=== PATIENT | female | born 1960 | race Caucasian/White ===

== ENCOUNTER 2024-01-19 16:30 | Observation (INO) | payer MEDICARE, OTHER, SELFPAY ==
[2024-01-19] VITALS (15 sets, daily range): BP systolic 107–133; BP diastolic 61–83; BMI 20.8; BMI 20.2
--- NOTE | 2024-01-19 10:26 | ED.GENMED ---
History of Present Illness
General
Chief Complaint: Fainting/Passed Out
Source: patient and ambulance crew
Exam Limitations: none
Time Seen by Provider: 01/19/24 10:01
Nursing documentation reviewed up to this point in time: agreed with
Travel History
Have you had any contact with someone who has COVID-19?: No
Do you have any symptoms of coronavirus? Fever > 100 degrees, chills, cough, shortness of breath, sore throat, loss of taste or smell, muscle aches, or headache?: No
History of Present Illness
History of Present Illness:
64-year-old female presents emergency department due to lightheadedness and weakness since yesterday. She had a near syncope episode this morning. She lowered self to the ground. She reports episodes of shaking and having able to move. She
reports nausea and episode of diarrhea on arrival. Her dog had Giardia recently.
Past History
Past History
ED Past Medical History: Hypothyroidism
ED Past Surgical History: Orthopedic
Social History
Tobacco: Non-smoker
Alcohol: Occasional
Drug: None
Living: alone
Review of Systems
Review of Systems
Allergies reviewed?: Yes
All Other Systems: Not applicable
Constitutional: Reports no symptoms
EENT: Reports no symptoms
Respiratory: Reports no symptoms
Cardiac: Reports syncope (Near)
ABD/GI: Reports nausea and diarrhea
: Reports no symptoms
Musculoskeletal: Reports no symptoms
Skin: Reports no symptoms
Neurological: Reports dizzy
Endocrine: Reports no symptoms
Hematologic/Lymphatic: Reports no symptoms
Psychiatric: Reports no symptoms
Phy Exam
Physical Exam
Physical Exam:
Physical Exam
General: no apparent distress, not acutely ill
Neck: supple. no meningeal signs. normal posterior pharynx
Heart: s1/s2 regular rate and rhythm, no murmur. equal radial
pulses.
HEENT: Pupils equal round reactive to light, EOMI
Lungs: no acute respiratory distress. clear bilaterally
Abdomen: normal bowel sounds. not tender. no CVAT
Neuro: alert and oriented. no focal neurological deficits cranial nerves II through XII intact
Skin: no rash
Psychiatric: well kept. interactive and cooperative
Extremities: no edema. no calf tenderness. negative homans. good distal pulses
Course
Orders/Labs/Results
Orders:
Orders
01/19/24 10:23
IV Insert/Care/Rem.- Treatment PRN
Pulse Ox/cont/shift [RESP] Stat
Quantity: 1
01/19/24 10:24
Electrocardiogram (*1) Stat
Reason for Study: Other
Other Reason for Exam: chest pain
Cardiac Monitoring- Treatment ONCE
EKG- Treatment ONCE
01/19/24 10:30
Complete Blood Count/With Diff Urgent
Comprehensive Metabolic Panel Urgent
Magnesium Urgent
TSH Urgent
Troponin I Urgent
01/19/24 10:49
CT Head W/o Iv Contrast Urgent
Comment:
Reason For Exam: dizziness, weakness
01/19/24 12:52
Aspirin 325 mg PO NOW STA
01/19/24 15:36
Admit/Transfer Patient As Directed
Co-Sign Provider:
Level of Care: Observation services
Assign to:: Telemetry
Physician / Group: Hospitalist
Diagnosis: Pre Syncope
Reason for Telemetry: CVA/TIA
Date to Stop Telemetry: 01/22/24
Time to Stop Telemetry: 11:00
01/19/24 15:37
Code Status As Directed
Resuscitation Status: Full Code
01/22/24 11:00
DC Protocol for Telemetry ONCE
Abnormal Lab Results
01/19/24
10:30
MCH 31.6 H pg
(27.0-31.0)
Absolute Lymphs (auto) 1.1 L 10^3/uL
(1.2-3.4)
Glucose 109 H mg/dl
(70-99)
01/19/24 10:30
01/19/24 10:30
Vital Signs
Initial and Last Documented VS:
Initial Vital Signs
BP
129/78
01/19/24 10:00
Last Documented Vital Signs
Temp Pulse Resp BP Pulse Ox
98.2 F 69 11 125/69 98
01/19/24 10:02 01/19/24 15:30 01/19/24 15:30 01/19/24 15:00 01/19/24 15:15
MDM/Problems Addressed
Differential Diagnosis Includes:
CVA, TIA, syncope
MDM/Problems Addressed:
64-year-old female with weakness, possible TIA.
Chronic conditions affecting care: Other (Hypothyroidism)
*Radiology
Radiology exam reviewed: radiology read reviewed (CT head no acute findings)
*Pulse Oximetry
Patient hypoxic: no
*EKG
Interpreted by ED Provider?: Yes
EKG Intrepretation Date: 01/19/24
EKG Intrepretation Time: 10:46
Interpretation: normal
Comparison EKG: no changes
Heart Rate: 68
Rate: normal
Rhythm: sinus
[place]: normal axis
Interval: normal interval
QRS Pattern: normal QRS
Ischemia: no ischemia
*Head Insulation Board Saw Operator Interpretation
Rate: normal
Interpretation: normal
Heart Rate: 66
Rhythm: sinus
*Critical Care Note
Total Time (30-74mins, 75-104mins- exclusive of procedures): Not Applicable
ED Attending Note
-
Portions of this chart may have been created with voice recognition software.� Occasional wrong word or��sound alike� substitutions may have occurred due to the inherent limitations of voice recognition software.
Discharge Plan
Departure
Patient Disposition: Admit
Date of Disposition: 01/19/24
Time of Disposition: 12:51
Admit to: Telemetry
Presentation/result/management discussed w/ accepting MD/DO: Hospitalist
Patient with high blood pressure during this ER visit?: Yes
Condition: Good
Discharge Problem:
Ataxia
Interventions
Interventions:
*Risk Screen - Suicide Last Done: 01/19/24 10:03
*General Assessment Last Done: 01/19/24 10:03
*Neglect/Abuse Screening Last Done: 01/19/24 10:03
*ED COVID-19 Vaccine History Last Done: 01/19/24 10:02
ED- Cardiac Assessment Last Done: 01/19/24 10:03
ED- Neurological Assessment Last Done: 01/19/24 16:33
[2024-01-19 10:50] LABS: % Basophils 0.6 % (0-2); % Eosinophils 0.8 % (0-6); % Immature Granulocytes 0.2 % (0-0.5); % Lymphocytes 20.5 % (20.5-51.1); % Monocytes 5.9 % (1.7-9.3); Absolute Lymphocytes 1.1 10^3/uL (1.2-3.4); Absolute Monocytes 0.3 10^3/uL (0.1-0.6); Absolute Neutrophils 3.7 10^3/uL (1.4-6.5); Hematocrit 38.8 % (37.0-47.0); Hemoglobin 13.5 g/dL (12.0-16.0); Mean Corp Hgb Conc. 34.8 g/dL (33.0-37.0); Mean Corpuscular Hgb 31.6 pg (27.0-31.0); Mean Corpuscular Volume 90.9 fL (81.0-99.0); Mean Platelet Volume 8.9 fL (7.4-10.4); Nucleated Red Blood Cells % 0 %; Platelet Count 271 10^3/uL (130-400); Red Blood Cell Count 4.27 10^6/uL (4.20-5.40); Red Cell Dist. Width 11.8 % (11.5-14.5); White Blood Cell Count 5.1 10^3/uL (4.8-10.8)
[2024-01-19 11:06] LABS: ALT (SGPT) 30 U/L (0-35); AST (SGOT) 31 U/L (14-36); Albumin 4.6 g/dl (3.5-5.0); Alkaline Phosphatase 113 U/L (38-126); Blood Urea Nitrogen 15 mg/dl (7-17); Calcium 10.1 mg/dl (8.4-10.2); Carbon Dioxide 27 mmol/L (22-30); Chloride 100 mmol/L (98-107); Estimated Creatinine Clearance 91 ml/min; Glucose 109 mg/dl (70-99); Potassium 4.1 mmol/L (3.5-5.1); Sodium 136 mmol/L (135-145); Total Bilirubin 1.1 mg/dl (0.2-1.3); Total Protein 7.2 g/dl (6.3-8.2); eGFR > 60.00
[2024-01-19 11:17] LABS: Troponin I < 0.012 ng/ml
[2024-01-19] MEDS: ASPIRIN 325 MG PO (13:20)
--- NOTE | 2024-01-19 15:05 | HPS.HSE ---
Family Physician
-
Family Physician: Swapna Dunbar
Chief Complaint
-
Passing out
History of Present Illness
64-year-old female presented with lightheadedness and weakness. She also had a syncopal event today. She slowly lowered herself down. Did not lose consciousness . She stated that this morning in bed she felt dizzy. She got up and started
feeling really dizzy and went down. She laid on for some time where she felt extremely anxious and wanted to go to the bathroom. She felt nauseous. Had a bowel movement which was loose. She also felt shaky afterwards and brought herself to the
hospital. Had a slight headache today. No weakness numbness tingling no vision changes. No palpitations or chest pain or shortness of breath. No fever
Medical History
Past Medical History
Past Medical History: Reports Other
Additional Past Medical History:
Anxiety, insomnia, hyperlipidemia, hypothyroidism. Patient also is being monitored by [facility] because of some lesions in her brain which was found out when she was part of a study after 911. This was designed to sleep with patient's
who have sleep apnea developed Alzheimer's.
Past Surgical History: Reports None
Social History
Tobacco: Non-smoker
Alcohol: None
Drug: None
Employment: Retired
Family History
Family History: Other (Father had history of stroke in the 60s)
Allergies / Home Medications
Allergies reflects when Allergies were last updated in [facility].
Home Medications with original date entered in [facility]
Allergy/Medication List:
Allergies
Allergy/AdvReac Type Severity Reaction Status Date / Time
Penicillins Allergy Swelling, Verified 11/16/19 14:27
throat
closing
Home Medications
levothyroxine 125 mcg tablet (Synthroid) 125 mcg PO SUFRSA@0800 01/19/24
levothyroxine 125 mcg tablet (Synthroid) 187.5 mcg PO MOTUWETH 01/19/24
rosuvastatin 5 mg tablet (Crestor) 5 mg PO Q72H 01/19/24
sertraline 50 mg tablet 50 mg PO DAILY 01/19/24
Trazodone 50 mg at bedtime as needed for sleep
Review of Systems
-
A 12 point ROS was completed and negative except as noted: Yes
Respiratory: Denies Trouble Breathing
Cardiac: Denies Chest Pain
Abdomen/GI: Reports Diarrhea; Denies Abdominal Pain
Musculoskeletal: Denies Joint Pain
Neurological: Reports Dizzy and Headache; Denies Weakness or Numbness
Physical Exam
Vital Signs
Vital Signs
Temp Pulse Resp BP Pulse Ox
98.2 F 69 11 133/76 99
01/19/24 10:02 01/19/24 14:00 01/19/24 14:00 01/19/24 14:00 01/19/24 14:00
Physical Exam
General: No Apparent Distress and Comfortable
Respiratory: Clear
Cardiac: S1/S2 and Regular Rhythm
GI: Soft, Non Tender and Normal Bowel Sounds
Skin: Warm
Neuro: AO x 3 and Nonfocal/grossly intact
Psych: Intact Judgment/Insight
Laboratory Results
-
01/19/24 10:30
01/19/24 10:30
Laboratory Results
Total Bilirubin 1.1 mg/dl (0.2-1.3) 01/19/24 10:30
AST 31 U/L (14-36) 01/19/24 10:30
ALT 30 U/L (0-35) 01/19/24 10:30
Alkaline Phosphatase 113 U/L (38-126) 01/19/24 10:30
Troponin I < 0.012 ng/ml 01/19/24 10:30
Data Reviewed
-
CT Scan: Report Reviewed by me (Stable no acute changes on head CT)
Medical Tests (Nuc Med, Echo, EKG etc): Image Personally Visualized and interpreted (EKG-sinus rhythm with sinus arrhythmia)
Impression/Plan
-
IMPRESSION/PLAN:
# Dizziness/pre syncope
No loss of consciousness
Symptoms are consistent with peripheral vertigo
However patient has a history of abnormal lesions in the brain and also family history of stroke
Therefore we will obtain an MRI with and without contrast
Neurology has been consulted
Continue neurochecks and NIH scale
Lipid studies in the morning-continue current dose of statin
ASA 81 mg
# Loose stools. Patient reports that her daughter recently had Giardia and therefore we will check stools for the same.
# Hypothyroidism-continue Synthroid 187.5 mcg Saturday and 125 mcg Saturday
# Hyperlipidemia-continue statin
# Depression-continue Zoloft
# Insomnia-continues trazodone
# DVT prophylaxis
# Full code
[2024-01-19] MEDS: TYLENOL 650 MG PO (20:24)
[2024-01-19] MEDS: LOVENOX 40 MG SC (20:26)
--- NOTE | 2024-01-19 22:01 | PTCARENOTE ---
received patient from the ED. AAOx3. NIH 0. neuro intact. NSR on tele 70s. bp 119/77. patient states feeling anxious at times. denies any lightheadedness/dizziness. patient states that its hard to explain feeling when she has episodes of syncope.
patient states feeling of 'loss of equilibrium' for a month now. educated patient to inform RN with any changes and for assistance oob. verbalized understanding. call ovalles within reach. calls appropriately.
[2024-01-19] MEDS: DESYREL 50 MG PO (23:12)
[2024-01-19] MEDS: CRESTOR 5 MG PO (23:12)
[2024-01-20] VITALS (10 sets, daily range): BP systolic 93–133; BP diastolic 55–84; PULSE 96–106
--- NOTE | 2024-01-20 04:27 | PTCARENOTE ---
patient states sleeping well overnight. x1 episode of dizziness when patient moved head to fast when laying in bed-resolved. NIH 0. neuro intact. EMS IV site removed. new Right AC 20G started.
patient asking to be checked for lymes disease. will pass on to day shift.
[2024-01-20 04:39] LABS: Hematocrit 38.5 % (37.0-47.0); Hemoglobin 13.2 g/dL (12.0-16.0); Mean Corp Hgb Conc. 34.3 g/dL (33.0-37.0); Mean Corpuscular Hgb 31.3 pg (27.0-31.0); Mean Corpuscular Volume 91.2 fL (81.0-99.0); Mean Platelet Volume 9.1 fL (7.4-10.4); Platelet Count 257 10^3/uL (130-400); Red Blood Cell Count 4.22 10^6/uL (4.20-5.40); White Blood Cell Count 4.3 10^3/uL (4.8-10.8)
[2024-01-20 05:18] LABS: Blood Urea Nitrogen 15 mg/dl (7-17); Calcium 9.9 mg/dl (8.4-10.2); Carbon Dioxide 23 mmol/L (22-30); Chloride 105 mmol/L (98-107); Estimated Creatinine Clearance 89 ml/min; Glucose 94 mg/dl (70-99); HDL Cholesterol 69 mg/dl; LDL Cholesterol, Calculated 116 mg/dl; Potassium 4.8 mmol/L (3.5-5.1); Sodium 138 mmol/L (135-145); Total Cholesterol 212 mg/dl (50-199); Triglyceride 137 mg/dl (10-149); Very Low Density Lipoprotein 27 mg/dl (0-30); eGFR > 60.00
[2024-01-20] MEDS: SYNTHROID 187.5 MCG PO (06:31)
[2024-01-20] MEDS: LOW STRENGTH ASPIRIN 81 MG PO (07:50)
[2024-01-20] MEDS: ZOLOFT 50 MG PO (07:50)
--- NOTE | 2024-01-20 09:08 | CON.NEURO4 ---
Addendum entered and electronically signed by Rodolfo Hill MD 01/20/24 14:20:
Studies reviewed.
I have personally examined the patient. I reviewed and agree with the ADMINISTRATIVE MEDICAL DIRECTOR's Note.
My addenda:
Awake, alert, interactive. No acute distress.
Speech intact.
Follows 2-step requests w/o difficulty. No tremor.
Extra-ocular movements grossly intact.
Facial movements full and symmetric. Hearing intact to normal conversational volume.
Normal UE movements bilaterally.
Neck: full ROM.
Chest: no dyspnea
Heart: no JVD
Ext: (-) Clubbing, (-) Cyanosis, (-) Edema
IMPRESSIONS/RECOMMENDATIONS:
Abrupt onset of dizziness which has been ongoing for the last approximately 4 weeks with episodic events with activity
Differential diagnosis includes PTSD with exacerbation, BPPV, possible ACADEMIC INTERVENTIONIST changes consistent with possible multiple sclerosis
Check MRI of brain with and without contrast
Rehabilitation evaluations
Provide dimenhydrinate
Discontinue aspirin
Follow orthostatic blood pressures
Because of the patient's self stated cognitive dysfunction, outpatient neuropsychological evaluation
D/W patient
Will continue to follow pending results.
Original Note:
Documented by User: Zaria Rizzo NP 01/20/24 12:21
Consultation - Neurology 4
-
CONSULTING PHYSICIAN: Rodolfo Hill MD
REFERRING PHYSICIAN: Hospitalists/Dr. Melgar
DICTATED BY: JENNIFER Tomlinson
DATE/TIME OF REQUEST: 01/19/24
DATE/TIME OF CONSULTATION: 01/20/24
Reason for Consultation: Disequilibrium
History of Present Illness:
This is a 64-year-old right-handed female who has presented to the hospital with report of disequilibrium, lightheadedness, and weakness. Patient reports an extensive neurological history. In her 40's she reports that she underwent a workup for
multiple sclerosis and EMG testing demonstrated a 'difference' in response on her right side versus her left side. Nothing came of this. About 10 months ago, she started being evaluated by [facility] for brain fog, right-sided neck pain with
right hand thumb and index finger numbness, fatigue, bilateral leg pain and sciatica, urinary and bowel urgency, and difficulty focusing her vision.
From previous evaluation by Dr. Mcqueen at [facility] in 09/2023:
'While in her 40s she saw a physician for symptoms that she cannot recall. She wonders if this was related to incidental findings seen on CT scans of her brain after a skiing accident. She had testing done including ?EMG vs evoked potentials and
was told it was possible that she had MS but no follow up was done. She felt well thereafter. She remains incredibly active (exercises and works outside). Over the years she has had episodes of severe pain in the forearm which is sometimes relieved
by changing position and she has been in the ED for this to receive opiate medication.
Since age 59 she has had several symptoms. In early 2022 she notes significant right-sided neck pain and by her shoulder blade without radiation. She received epidural injections at the C6-7 level x 2 with some relief. She then developed some
intermittent numbness and tingling in the first and second digit on the right hand without any taylor weakness. No associated wrist pain. She had an MRI of the C spine in February of 2023
She notes that a few months ago she acutely began to experience significant fatigue. She is now having difficulty walking up the driveway and she is more exhausted by basic activity. She describes the fatigue as a heaviness and tiredness in her
body. She describes achiness throughout her body. She is normally able to hike and walk 5 miles in 1 hour and now she can barely walk. She denies shortness of breath. She cannot recall any clear antecedent events except that she started a statin
which did cause leg pain and then she switched to atorvastatin. She also has arthralgias (hands, knees and elbows). She also notes sharp zaps in her joints. She has been tested for Lyme disease due to frequent tick bites. She has had episodes of
buckling in the left knee due to a zap of pain.
She also has some episodes of buttock pain after sitting int he car for too long. She also has sharp significant pain in the lower left leg.
She notes about 2 months of new urinary and bowel urgency. She has had urinary incontinence at night. Otherwise no urinary frequency throughout the day.
She recently had a new glasses prescription and denies taylor blurry vision but she notes some difficulty with focusing her vision. No diplopia. No acute episodes of unilateral vision loss and no painful eye movements.
She notes itchiness throughout the body but most on her back without visible rash. She has had a sense of formication as well.
She notes that her mood has been somewhat low after trying to discontinue her antidepressant in the summer. She now feels that her mood is 'okay.' She feels a bit more like she is isolating.
When asked about prior neurologic symptoms, Neyda Amaya denies prior episodes of blurry or loss of vision, diplopia, vertigo, dysarthria, dysphagia, focal weakness, focal numbness/tingling, bowel/bladder symptoms, imbalance, gait dysfunction.
MRI brain 10/07/2023: there are T2 FLAIR hyperintense lesions in the PV and subcortical space; most do not have a central vein. Some do have corresponding T1 hypointensity. There is likely DVA in the R medial frontal lobe.
MRI C and T spine 10/07/2023: no definite cord abnormality; mild discogenic disease. L renal cyst.
MRI cervical spine w/o contrast 03/05/2023 (report reviewed): chronic degenerative changes in the cervical spine primarily at the C5-6 and C6-7 levels; progression of severe right neuroformaminal stenosis at C6-7 with suspected impingement upon the
exiting R C7 nerve root. Normal cord signal noted.
MRI C spine w/o contrast 04/06/2021: mild interval increase in mod discogenic degenerative disease at C5-6 with a mild amount of adjacent endplate bone marrow edema and a moderate sized disco-osteophyte complex causing mild spinal cord compression
which may be slightly increased since 03/02/2019. Moderate discogenic degen disease at C6-7 which has mildly increased since 03/02/2019. Diffuse disc bulge at the C6-7 level. Moderate right neural foraminal narrowing at C6-7 which has icnreased since
03/02/2019.
Diagnostic Labs
May 2023:
CMP WNL, Vit D level 60, CBC WNL; ALC 1513, Hgb 13.3, Lyme screen neg, Vit B12 level 464, Folate > 24
Labs 10/07/2023:
SPEP with NITO neg, CHELY neg, RF normal, CK 93 (WNL), Vitamin B1 138, Hgb A1c 5.8%.'
Today (01/20/24): Patient report 3-4 weeks of 'dysequilibrium' episodes. She has had about 4 total episodes of losing her sense of balance, this has happened when she was walking on the treadmill or just when turning her head while lying in bed. The
episodes last anywhere from a few seconds to 5 minutes. Yesterday (01/19/24), she reports that she stood up out of bed and got a sense of dysequilibrium. She went to walk and her balance felt off. She laid back down in bed and reports feeling
'frozen,' she couldn't move her body. This prompted her to call 911. She then developed a sudden urge to vomit/move her bowels and ended up having an episode of diarrhea.
On arrival to the ER CT head was obtained and is negative for any acute abnormalities. Currently, patient reports still having intermittent episodes of dizziness which resolves when she lays still. She denies any hearing loss or tinnitus but does
not a 7 year history of left ear discomfort/itching that has been treated with oral steroids. She also notes that one of her dogs is being treated for Giardia and she has significant tick exposure. She endorses a mild headache and a slight, constant
light-headed sensation. She denies any vision changes, speech/swallow difficultly, numbness, weakness, nausea, chest pain, palpitations, and shortness of breath. She denies any recent fever, illnesses, or history of TIA or stroke in the past and she
is not taking any blood-thinning medications.
Past Medical History: HLD, hypothyroidism, asthma, PTSD, depression, insomnia, chronic sinusitis, cervical radiculopathy/spondylosis, lumbar bulging discs/sciatica, vitamin d and b12 deficiency, interstitial lung disease, eczema in left ear,
prediabetes
Surgical History: Cervical JOHNNY, partial thyroidectomy
Family History: Father- CVA in his 60's. Mother- RA.
Social History: Former tobacco. Former heavy alcohol. Currently drinks 6 beers/week. Denies illicit drug use.
Allergies: Penicillins.
Home Medications: See below.
Review of Symptoms:
Patient denies any fever, chest pain, shortness of breath, GI or symptoms.
�Per the HPI.�All systems are reviewed negative except above.
Physical Exam:
The patient is afebrile, abdomen is nondistended, breathing is unlabored, skin is warm and dry, no edema.
NIH Stroke Scale:
I performed the NIH stroke scale on the patient on 01/20/24 at 0915. The patient scored 0 points on the NIH stroke scale assessment, which were assigned as follows: See below.
Neurologic Examination:
The patient is awake, alert and oriented x 3. She is able to follow commands and answer questions appropriately. There is no aphasia or dysarthria. On cranial nerve assessment, pupils are 3 mm bilateral, round and reactive to light and
accommodation. Visual lu are full. Extraocular movements are intact. Facial sensations are intact and bilaterally symmetrical, there is no facial asymmetry. Hearing is intact bilaterally to finger rub. Tongue palate and uvula are midline.
Sternocleidomastoid strengths are full bilaterally. Motor strengths are 5/5 bilateral upper and lower extremities on medical research [place] scale. There is no drift or involuntary movement noted. Deep tendon reflexes are 2+ bilateral biceps,
otherwise trace throughout. Babinski is absent bilaterally. Sensations of touch, temperature and vibration are intact and bilaterally symmetrical. There was no extinction noted on double simultaneous stimulation. Coordination is intact by finger to
nose bilaterally. Mildly ataxic with heel to almeida bilaterally. Negative head impulse and test of skew. Unable to sit on the side of the bed without becoming dizzy.
Lab Results: See below.
Neuro Imaging:
1. CT Head 01/19/24: Stable. No acute intracranial abnormality noted.
Differentials for the patient's presentation include:
1. BPPV possible
2. Vestibular neuritis possible but less likely given absence of nystagmus.
3. Some concern for demyelinating process, multiple sclerosis given [facility] workup and neurological imaging in her 40's.
4. Low concern for stroke.
Patient has the following risk factors for their symptoms:
IV Tenecteplase/IAT candidacy
Recommendations:
-MRI brain with and w/o contrast ordered/pending.
-Do not see a clear indication for aspirin therapy, discontinued.
-Provide Dimenhydrinate 50mg IV x1 now and continue q4hrs PRN.
-MRI brain with and w/o contrast ordered/pending.
-Check orthostatic vital signs BID.
-Neurological checks and NIHSS until MRI brain is obtained.
-Provide patient with stroke education packet.
-PT/OT/ST evaluations.
-Patient needs outpatient neuropsychological testing.
-DVT prophylaxis.
-Will follow pending results. Patient also instructed to notify Dr. Mcqueen and follow-up with her as an outpatient.
Discussed patient care with: Dr. Hill, the patient
Vital Signs and Labs
-
Vital Signs and Labs:
Vital Signs
Temp Pulse Resp BP Pulse Ox
98.0 F 70 16 133/74 100
01/20/24 04:00 01/20/24 06:00 01/20/24 04:00 01/20/24 04:06 01/20/24 09:30
Lab Results
01/20/24 04:06
01/20/24 04:07
Sodium 138 mmol/L (135-145) 01/20/24 04:07
Potassium 4.8 mmol/L (3.5-5.1) 01/20/24 04:07
BUN 15 mg/dl (7-17) 01/20/24 04:07
Glucose 94 mg/dl (70-99) 01/20/24 04:07
Calcium 9.9 mg/dl (8.4-10.2) 01/20/24 04:07
LDL Cholesterol, Calc 116 mg/dl 01/20/24 04:07
Vitamin B12 457 pg/ml (360-931) 01/20/24 04:06
Medications
-
Active Medications
Generic Name Dose Route Start Last Admin
Trade Name Freq PRN Reason Stop Dose Admin
Acetaminophen 650 mg 01/19/24 19:32
Acetaminophen 650 Mg Rectal Suppository RECTAL 02/16/24 19:31
Q4HPRN PRN
FALCON, mild pain, or temp >100.4F
Acetaminophen 650 mg 01/19/24 19:32 01/19/24 20:24
Acetaminophen 325 Mg Tablet PO 02/16/24 19:31 650 mg
Q4HPRN PRN Administration
FALCON, mild pain, or temp >100.4F
Dimenhydrinate 50 mg 01/20/24 14:00
Dimenhydrinate 50 Mg/Ml Vial IV 02/17/24 13:59
Q4HPRN PRN
dizziness
Enoxaparin Sodium 40 mg 01/19/24 19:32 01/19/24 20:26
Enoxaparin Sodium 40 Mg/0.4 Ml Syringe SC 02/16/24 19:31 40 mg
QPM KURT Administration
Levothyroxine Sodium 125 mcg 01/24/24 08:00
Levothyroxine 125 Mcg Tablet PO 02/21/24 07:59
SuFrSa@0700 KURT
Levothyroxine Sodium 187.5 mcg 01/20/24 07:00 01/20/24 06:31
Levothyroxine 125 Mcg Tablet PO 02/17/24 06:59 187.5 mcg
MoTuWeTh@0700 KURT Administration
Rosuvastatin Calcium 5 mg 01/19/24 22:00 01/19/24 23:12
Rosuvastatin (Crestor) 5 Mg Tablet PO 02/16/24 21:59 5 mg
Q72H KURT Administration
Sertraline HCl 50 mg 01/20/24 08:00 01/20/24 07:50
Sertraline 50 Mg Tablet PO 02/17/24 07:59 50 mg
DAILY KURT Administration
Sodium Chloride 0 flush 01/19/24 21:00
Sodium Chloride 0.9% (Flush) Syringe IV 02/16/24 20:59
PER PROTOCOL KURT
Sodium Chloride 10 ml 01/20/24 10:00
Sodium Chloride 0.9% (Preservative Free) 10 Ml Vial INJ 02/17/24 09:59
Q4HPRN PRN
IV dimenhyDRINATE dilution
Trazodone HCl 50 mg 01/19/24 20:21 01/19/24 23:12
Trazodone 50 Mg Tablet PO 02/16/24 20:20 50 mg
HS PRN Administration
sleep
Home Medications
�Medication �Instructions �Recorded
levothyroxine 125 mcg tablet 125 mcg PO SUFRSA@0800 01/19/24
(Synthroid)
levothyroxine 125 mcg tablet 187.5 mcg PO MOTUWETH 01/19/24
(Synthroid)
rosuvastatin 5 mg tablet (Crestor) 5 mg PO Q72H 01/19/24
sertraline 50 mg tablet 50 mg PO DAILY 01/19/24
trazodone 50 mg tablet 50 mg PO HS PRN sleep 01/19/24
NIH Stroke Score
Subsequent NIH Scale
Date of Subsequent NIH Scale: 01/20/24
Time of Subsequent NIH Scale: 09:15
NIH Stroke Score
Level of Consciousness: 0 - Alert
LOC Questions: 0-Answers both correctly
LOC Commands: 0-Performs both correctly
Best Horizontal Gaze: 0-Normal
Visual Lu: 0=Normal, no visual loss
Facial Palsy: 0=Normal, symmetrical
Motor - Right Arm: 0=No drift 10 seconds
Motor - Left Arm: 0=No drift 10 seconds
Motor - Right Le-No drift 5 seconds
Motor - Left Le-No drift 5 seconds
Limb Ataxia: 0-Absent
Sensation: 0-Normal
Best Language: 0-No aphasia
Dysarthria: 0-Normal
Extinction and Inattention: 0-No abnormality
Total Score:: 0

Documented by User: Rodolfo Hill MD 01/20/24 14:08
Consultation - Neurology 4
-
CONSULTING PHYSICIAN: Rodolfo Hill MD
REFERRING PHYSICIAN: Hospitalists/Dr. Melgar
DICTATED BY: JENNIFER Tomlinson
DATE/TIME OF REQUEST: 01/19/24
DATE/TIME OF CONSULTATION: 01/20/24
Reason for Consultation: Disequilibrium
History of Present Illness:
This is a 64-year-old right-handed female who has presented to the hospital with report of disequilibrium, lightheadedness, and weakness. Patient reports an extensive neurological history. In her 40's she reports that she underwent a workup for
multiple sclerosis and EMG testing demonstrated a 'difference' in response on her right side versus her left side. Nothing came of this. About 10 months ago, she started being evaluated by [facility] for brain fog, right-sided neck pain with
right hand thumb and index finger numbness, fatigue, bilateral leg pain and sciatica, urinary and bowel urgency, and difficulty focusing her vision.
From previous evaluation by Dr. Mcqueen at [facility] in 09/2023:
'While in her 40s she saw a physician for symptoms that she cannot recall. She wonders if this was related to incidental findings seen on CT scans of her brain after a skiing accident. She had testing done including ?EMG vs evoked potentials and
was told it was possible that she had MS but no follow up was done. She felt well thereafter. She remains incredibly active (exercises and works outside). Over the years she has had episodes of severe pain in the forearm which is sometimes relieved
by changing position and she has been in the ED for this to receive opiate medication.
Since age 59 she has had several symptoms. In early 2022 she notes significant right-sided neck pain and by her shoulder blade without radiation. She received epidural injections at the C6-7 level x 2 with some relief. She then developed some
intermittent numbness and tingling in the first and second digit on the right hand without any taylor weakness. No associated wrist pain. She had an MRI of the C spine in February of 2023
She notes that a few months ago she acutely began to experience significant fatigue. She is now having difficulty walking up the driveway and she is more exhausted by basic activity. She describes the fatigue as a heaviness and tiredness in her
body. She describes achiness throughout her body. She is normally able to hike and walk 5 miles in 1 hour and now she can barely walk. She denies shortness of breath. She cannot recall any clear antecedent events except that she started a statin
which did cause leg pain and then she switched to atorvastatin. She also has arthralgias (hands, knees and elbows). She also notes sharp zaps in her joints. She has been tested for Lyme disease due to frequent tick bites. She has had episodes of
buckling in the left knee due to a zap of pain.
She also has some episodes of buttock pain after sitting int he car for too long. She also has sharp significant pain in the lower left leg.
She notes about 2 months of new urinary and bowel urgency. She has had urinary incontinence at night. Otherwise no urinary frequency throughout the day.
She recently had a new glasses prescription and denies taylor blurry vision but she notes some difficulty with focusing her vision. No diplopia. No acute episodes of unilateral vision loss and no painful eye movements.
She notes itchiness throughout the body but most on her back without visible rash. She has had a sense of formication as well.
She notes that her mood has been somewhat low after trying to discontinue her antidepressant in the summer. She now feels that her mood is 'okay.' She feels a bit more like she is isolating.
When asked about prior neurologic symptoms, Neyda Amaya denies prior episodes of blurry or loss of vision, diplopia, vertigo, dysarthria, dysphagia, focal weakness, focal numbness/tingling, bowel/bladder symptoms, imbalance, gait dysfunction.
MRI brain 10/07/2023: there are T2 FLAIR hyperintense lesions in the PV and subcortical space; most do not have a central vein. Some do have corresponding T1 hypointensity. There is likely DVA in the R medial frontal lobe.
MRI C and T spine 10/07/2023: no definite cord abnormality; mild discogenic disease. L renal cyst.
MRI cervical spine w/o contrast 03/05/2023 (report reviewed): chronic degenerative changes in the cervical spine primarily at the C5-6 and C6-7 levels; progression of severe right neuroformaminal stenosis at C6-7 with suspected impingement upon the
exiting R C7 nerve root. Normal cord signal noted.
MRI C spine w/o contrast 04/06/2021: mild interval increase in mod discogenic degenerative disease at C5-6 with a mild amount of adjacent endplate bone marrow edema and a moderate sized disco-osteophyte complex causing mild spinal cord compression
which may be slightly increased since 03/02/2019. Moderate discogenic degen disease at C6-7 which has mildly increased since 03/02/2019. Diffuse disc bulge at the C6-7 level. Moderate right neural foraminal narrowing at C6-7 which has icnreased since
03/02/2019.
Diagnostic Labs
May 2023:
CMP WNL, Vit D level 60, CBC WNL; ALC 1513, Hgb 13.3, Lyme screen neg, Vit B12 level 464, Folate > 24
Labs 10/07/2023:
SPEP with NITO neg, CHELY neg, RF normal, CK 93 (WNL), Vitamin B1 138, Hgb A1c 5.8%.'
Today (01/20/24): Patient report 3-4 weeks of 'dysequilibrium' episodes. She has had about 4 total episodes of losing her sense of balance, this has happened when she was walking on the treadmill or just when turning her head while lying in bed. The
episodes last anywhere from a few seconds to 5 minutes. Yesterday (01/19/24), she reports that she stood up out of bed and got a sense of dysequilibrium. She went to walk and her balance felt off. She laid back down in bed and reports feeling
'frozen,' she couldn't move her body. This prompted her to call 911. She then developed a sudden urge to vomit/move her bowels and ended up having an episode of diarrhea.
On arrival to the ER CT head was obtained and is negative for any acute abnormalities. Currently, patient reports still having intermittent episodes of dizziness which resolves when she lays still. She denies any hearing loss or tinnitus but does
not a 7 year history of left ear discomfort/itching that has been treated with oral steroids. She also notes that one of her dogs is being treated for Giardia and she has significant tick exposure. She endorses a mild headache and a slight, constant
light-headed sensation. She denies any vision changes, speech/swallow difficultly, numbness, weakness, nausea, chest pain, palpitations, and shortness of breath. She denies any recent fever, illnesses, or history of TIA or stroke in the past and she
is not taking any blood-thinning medications.
Past Medical History: HLD, hypothyroidism, asthma, PTSD, depression, insomnia, chronic sinusitis, cervical radiculopathy/spondylosis, lumbar bulging discs/sciatica, vitamin d and b12 deficiency, interstitial lung disease, eczema in left ear,
prediabetes
Surgical History: Cervical JOHNNY, partial thyroidectomy
Family History: Father- CVA in his 60's. Mother- RA.
Social History: Former tobacco. Former heavy alcohol. Currently drinks 6 beers/week. Denies illicit drug use.
Allergies: Penicillins.
Home Medications: See below.
Review of Symptoms:
Patient denies any fever, chest pain, shortness of breath, GI or symptoms.
�Per the HPI.�All systems are reviewed negative except above.
Physical Exam:
The patient is afebrile, abdomen is nondistended, breathing is unlabored, skin is warm and dry, no edema.
NIH Stroke Scale:
I performed the NIH stroke scale on the patient on 01/20/24 at 0915. The patient scored 0 points on the NIH stroke scale assessment, which were assigned as follows: See below.
Neurologic Examination:
The patient is awake, alert and oriented x 3. She is able to follow commands and answer questions appropriately. There is no aphasia or dysarthria. On cranial nerve assessment, pupils are 3 mm bilateral, round and reactive to light and
accommodation. Visual lu are full. Extraocular movements are intact. Facial sensations are intact and bilaterally symmetrical, there is no facial asymmetry. Hearing is intact bilaterally to finger rub. Tongue palate and uvula are midline.
Sternocleidomastoid strengths are full bilaterally. Motor strengths are 5/5 bilateral upper and lower extremities on medical research [place] scale. There is no drift or involuntary movement noted. Deep tendon reflexes are 2+ bilateral biceps,
otherwise trace throughout. Babinski is absent bilaterally. Sensations of touch, temperature and vibration are intact and bilaterally symmetrical. There was no extinction noted on double simultaneous stimulation. Coordination is intact by finger to
nose bilaterally. Mildly ataxic with heel to alemida bilaterally. Negative head impulse and test of skew. Unable to sit on the side of the bed without becoming dizzy.
Lab Results: See below.
Neuro Imaging:
1. CT Head 01/19/24: Stable. No acute intracranial abnormality noted.
Differentials for the patient's presentation include:
1. BPPV possible
2. Vestibular neuritis possible but less likely given absence of nystagmus.
3. Some concern for demyelinating process, multiple sclerosis given [facility] workup and neurological imaging in her 40's.
4. Low concern for stroke.
Recommendations:
-MRI brain with and w/o contrast ordered/pending.
-Do not see a clear indication for aspirin therapy, discontinued.
-Provide Dimenhydrinate 50mg IV x1 now and continue q4hrs PRN.
-MRI brain with and w/o contrast ordered/pending.
-Check orthostatic vital signs BID.
-Neurological checks and NIHSS until MRI brain is obtained.
-Provide patient with stroke education packet.
-PT/OT/ST evaluations.
-Patient needs outpatient neuropsychological testing.
-DVT prophylaxis.
-Will follow pending results. Patient also instructed to notify Dr. Mcqueen's at [facility] and follow-up with her as an outpatient.
Discussed patient care with: Dr. Hill, the patient
NIH Stroke Score
NIH Stroke Score
Total Score:: 0
--- NOTE | 2024-01-20 09:35 | PTCARENOTE ---
Assumed careof pt from night RN. Pt received awake and alert, Ox3. VSS, CM shows NSR 60's, POX 100% on RA. She states that when she moves her head quickly in bed she feels dizzy. Walked to the BR for AM care, a little unsteady. Awaiting MRI of
brain today.
--- NOTE | 2024-01-20 09:38 | W.PN.HOSP.TC ---
Today's Communication/Plan
-
MRI
Orthostatic VS
Assessment / Plan
Assessment / Plan
CVS: S1-S2 normal
Chest: CTA B/L
Abdomen: Soft, NT / Bowel sounds present
Extremities: No edema, normal pulses
STUDENT AMBASSADOR: Mild nystagmus when looking to left
Otherwise nonfocal exam
Pt says she had an episode this am
# Dizziness/Pre syncope
No loss of consciousness
Symptoms are consistent with peripheral vertigo, she had symptoms in bed yesterday
However patient has a history of abnormal lesions in the brain and also family history of stroke
Therefore we will obtain an MRI with and without contrast
Neurology has been consulted
Continue neurochecks and NIH scale
Lipid studies in the morning-continue current dose of statin
ASA 81 mg
# Loose stools. Patient reports that her daughter recently had Giardia and therefore we will check stools for the same.
# Hypothyroidism-continue Synthroid 187.5 mcg Saturday and 125 mcg Saturday
# Hyperlipidemia-continue statin
# Depression-continue Zoloft
# Insomnia-continues trazodone
# DVT prophylaxis
# Full code
D/W neuro
Anticipated Discharge: Within 24 hours
Subjective/Interval History
-
Date of Service: January 20, 2024
Objective Data
-
Labs:
Laboratory Results
01/20/24 01/20/24
04:06 04:07
WBC 4.3 L
Hgb 13.2
Hct 38.5
Plt Count 257
Sodium 138
Potassium 4.8
Chloride 105
Carbon Dioxide 23
BUN 15
Creatinine 0.5 L
Glucose 94
Calcium 9.9
Vital Signs:
Vital Signs
Temp Pulse Resp BP Pulse Ox
98.0 F 70 16 133/74 100
01/20/24 04:00 01/20/24 06:00 01/20/24 04:00 01/20/24 04:06 01/20/24 09:30
I&O
01/19/24 01/20/24 01/21/24
06:59 06:59 06:59
Intake Total 250 / 250
Balance 250 / 250
[2024-01-20] MEDS: NSS (PRESERVATIVE FREE) 10 ML INJ (10:06)
[2024-01-20] MEDS: dimenhyDRINATE 50 MG IV (10:11)
--- NOTE | 2024-01-20 10:22 | PTCARENOTE ---
Benadryl given IV as per DEC.
[2024-01-20] MEDS: ATIVAN 1 MG PO (10:40)
[2024-01-20 10:49] LABS: Vitamin D, 25-OH*** 35.4 ng/mL (30-80)
--- NOTE | 2024-01-20 10:57 | PTCARENOTE ---
Pt to MRI for Brain MRI, Ativan 1 mg po given asper MAR prior to test.
[2024-01-20 11:08] LABS: Ferritin 99.8 ng/ml (11.1-264.0)
[2024-01-20 11:39] LABS: Folate > 20.0 ng/ml (2.76-20); Vitamin B12 457 pg/ml (239-931)
--- NOTE | 2024-01-20 13:28 | CM ---
Reviewed chart. Met with Mrs. Nazario to review discharge plans. She states prior to admission she resides alone in a two story home with three steps to enter. She states her bedroom/full bathroom are on the first floor. She states prior to
admission she was independent with ambulation and adls. Awaiting physical therapy evaluation to see if she will have any skilled care needs. She states she does not have any DME in the home. She states she has a prescription plan and uses mail
order. The discharge plan is to return home when medically stable.
--- NOTE | 2024-01-20 15:04 | W.PN.UPDATE ---
Update Note
Progress Note Update
MRI scattered small foci of T2 prolongation in the sub cortical WM Periventricular and deep WM. Moderate . from [place]
Reviewed MRI with Pt.
Pt wants to go home.
She says she had Lyme testing in the past
we will copy Images on a CD for pt to take to her neuro at [place].
She has appt in March.
I advised to move appt early since she already got the MRI done.
PT OT
okayed for discharge, OP neuro F/U [facility]
Discharge after that
D/W Neuro and RN
Total discharge coordination time 31 min
--- NOTE | 2024-01-20 15:14 | W.DS.TRANS ---
Addendum entered and electronically signed by Jeremías Melgar MD 01/20/24 15:55:
Dictation- [id number]
Original Note:
DC Summary - Leasing Professional
-
Discharge Instructions:
Discharge Diagnosis/Procedures Dizziness,Hypothyroidism,High Cholesterol,
Depression
Diet As tolerated
Activity As tolerated
Instructions:
Stand-Alone Forms:
Changes to Home Medications: No
Discharge Medications:
DC Medications w/original date entered in [facility]
trazodone 50 mg tablet 50 mg PO HS PRN sleep 01/19/24
levothyroxine 125 mcg tablet (Synthroid) 125 mcg PO SUFRSA@0800 Thyroid #0 tabs 01/20/24
levothyroxine 125 mcg tablet (Synthroid) 187.5 mcg (1.5 x 125 mcg) PO MOTUWETH Thyroid #0 tabs 01/20/24
rosuvastatin 5 mg tablet (Crestor) 5 mg PO Q72H High cholesterol #0 tabs 01/20/24
sertraline 50 mg tablet 50 mg PO DAILY Depression #0 tabs 01/20/24
Home Medication Changes
Pending Results: No
--- NOTE | 2024-01-20 16:16 | PTOTSP ---
The patient is independent with ambulation and elevations without a device, BP stable with activity with report of mild lightheadedness. Patient can follow up with Outpatient PT if she feels she needs guidance on regaining strength/endurance,
otherwise she is safe to return home at this time. No Acute PT needs at this time, will sign off.
--- NOTE | 2024-01-20 17:55 | PTCARENOTE ---
All D/C info reviewed with pt all questions answered. Pt d/c'd home with brother.
[2024-01-21 05:57] LABS: Hepatitis C Antibody Negative (Negative)
== END 2024-01-20 17:45 | disposition home or self-care (01) ==
LOC: IVU 16:30
PROVIDERS: ADMITTING PHYSICIAN Hospitalist; EMERGENCY PHYSICIAN Emergency Medicine; FAMILY PHYSICIAN Family Medicine; OTHER PHYSICIAN Psychiatry & Neurology Neurology
DX: R55 Syncope and collapse (principal); E03.9 Hypothyroidism, unspecified; R11.2 Nausea with vomiting, unspecified; R19.7 Diarrhea, unspecified; F32.A Depression, unspecified; F10.90 Alcohol use, unspecified, uncomplicated; E78.00 Pure hypercholesterolemia, unspecified; M50.323 Other cervical disc degeneration at C6-C7 level; M48.02 Spinal stenosis, cervical region; R53.1 Weakness; R27.0 Ataxia, unspecified; G47.00 Insomnia, unspecified; Z88.0 Allergy status to penicillin; Z82.3 Family history of stroke; Z79.82 Long term (current) use of aspirin; Z87.891 Personal history of nicotine dependence
CPT/HCPCS: 70450; 70553; 80048; 80053; 80061; 82306; 82607; 82728; 82746; 83735; 84443; 84484; 85025; 85027; 86803; 87328; 87329; 92526; 93005; 97162; 99285; G0378; J1240

== ENCOUNTER → 2024-02-19 11:45 | Outpatient (REF) | payer MEDICARE, OTHER, SELFPAY | LOC: PAVMRI 11:45 | PROVIDERS: ATTENDING PHYSICIAN Psychiatry & Neurology Neurology; FAMILY PHYSICIAN Family Medicine | DX: R42 Dizziness and giddiness (principal) | CPT/HCPCS: 70544; 70549; A9585 ==

== ENCOUNTER → 2024-02-29 11:10 | Outpatient (REF) | payer MEDICARE, OTHER, SELFPAY | LOC: MRI 3T 11:10 | PROVIDERS: ATTENDING PHYSICIAN Pain Medicine Interventional Pain Medicine; FAMILY PHYSICIAN Family Medicine | DX: M25.511 Pain in right shoulder (principal) | CPT/HCPCS: 73221 ==

== ENCOUNTER → 2024-03-04 18:27 | Outpatient (REF) | payer MEDICARE, OTHER, SELFPAY | LOC: MRI 18:27 | PROVIDERS: ATTENDING PHYSICIAN Specialist; FAMILY PHYSICIAN Family Medicine | DX: M25.512 Pain in left shoulder (principal) | CPT/HCPCS: 73221 ==

== ENCOUNTER → 2024-06-09 15:44 | Outpatient (REF) | payer MEDICARE, OTHER, SELFPAY | LOC: WDC 15:44 | PROVIDERS: ATTENDING PHYSICIAN Surgery | DX: Z12.31 Encounter for screening mammogram for malignant neoplasm of breast (principal) | CPT/HCPCS: 77063; 77067 ==

== ENCOUNTER 2024-07-10 08:24 | Emergency (ER) | payer MEDICARE, OTHER, SELFPAY ==
[2024-07-10 08:31] VITALS: BP 135/85
--- NOTE | 2024-07-10 09:27 | ED.SKININJ ---
HPI-Injury
<Yasmin Torres MD, Resident - Last Filed: 07/10/24 11:15>
General
Chief Complaint: Bite
Source: patient and records
Exam Limitations: none
Time Seen by Provider: 07/10/24 09:03
Nursing documentation reviewed up to this point in time: agreed with
History of Present Illness-Injury
Is this injury a work related problem?: Yes
Is pt an associate of [facility]?: No
Initial Injury comments:
64-year-old female with history of hypothyroidism, depression, hyperlipidemia came in To Be Seen after She Was Bitten by a cat. 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
a sick cat she was handling at 12:30pm yesterday. The cat was sick with an unknown illness - fever, lethargy, not eating or drinking. She is unsure of the cat's rabies vax status. She was given Clavamox (vet amoxicillin-clavulanate) by a worker at
the clinic and was then seen at Urgent Care 3 hours after the bite. She was prescribed doxycycline 100 mg twice daily and Flagyl 250 mg twice daily, and given Benadryl and Zyrtec for history of penicillin allergy. Pt states most recent TDap was 5
years ago.
She reports mild swelling, mild pain in right middle finger, worse with flexion of PIP joint. Denies fevers, sweats, chills, or numbness/tingling.
Past History
<Yasmin Torres MD, Resident - Last Filed: 07/10/24 11:15>
Past History
ED Past Medical History: Hypercholesterolemia and Hypothyroidism
ED Past Surgical History: Orthopedic
Social History
Tobacco: Non-smoker
Alcohol: Occasional
Drug: None
Living: alone
Review of Systems
<Yasmin Torres MD, Resident - Last Filed: 07/10/24 11:15>
Review of Systems
Allergies reviewed?: Yes
Constitutional: Denies fever, fatigue, night sweats or chills
Musculoskeletal: Reports joint pain (R middle finger PIP joint of ) and joint swelling
Neurological: Denies weakness or numbness
Phy Exam
<Yasmin Torres MD, Resident - Last Filed: 07/10/24 11:15>
General Physical Exam
General Presentation: well appearing and no apparent distress
General Skin: warm and dry
General Habitus: normal
Cardiovascular Exam
Cardiovascular Exam: regular rate/rhythm, no edema, no gallop and no murmur
Pulmonary Exam
Pulmonary Exam: lungs clear, no respiratory distress, no rales, no crackles, no rhonchi and no wheezing
Musculoskeletal Exam
Musculoskeletal Exam: other (ROM of R middle PIP joint restricted by pain)
Course
<Yasmin Torres MD, Resident - Last Filed: 07/10/24 11:15>
Orders/Labs/Results
Orders:
Orders
07/10/24 10:17
Rabies Immune Globulin/Pf [HyperRAB] 1,200 unit IM NOW STA
07/10/24 10:30
Rabies Vaccine (Pcec)/Pf [Rabavert Rabies Vacc W-Diluent] 2.5 unit IM .ONCE ONE
Vital Signs
Initial and Last Documented VS:
Initial Vital Signs
Temp Pulse Resp BP Pulse Ox
98.4 F 76 18 135/85 99
07/10/24 08:31 07/10/24 08:31 07/10/24 08:31 07/10/24 08:31 07/10/24 08:31
Last Documented Vital Signs
Temp Pulse Resp BP Pulse Ox
98.4 F 76 18 135/85 99
07/10/24 08:31 07/10/24 08:31 07/10/24 08:31 07/10/24 08:31 07/10/24 08:31
<Sawyer Frausto DO - Last Filed: 07/10/24 11:20>
Orders/Labs/Results
Orders:
Orders
07/10/24 10:17
Rabies Immune Globulin/Pf [HyperRAB] 1,200 unit IM NOW STA
07/10/24 10:30
Rabies Vaccine (Pcec)/Pf [Rabavert Rabies Vacc W-Diluent] 2.5 unit IM .ONCE ONE
Vital Signs
Initial and Last Documented VS:
Initial Vital Signs
Temp Pulse Resp BP Pulse Ox
98.4 F 76 18 135/85 99
07/10/24 08:31 07/10/24 08:31 07/10/24 08:31 07/10/24 08:31 07/10/24 08:31
Last Documented Vital Signs
Temp Pulse Resp BP Pulse Ox
98.4 F 76 18 135/85 99
07/10/24 08:31 07/10/24 08:31 07/10/24 08:31 07/10/24 08:31 07/10/24 08:31
<Yasmin Torres MD, Resident - Last Filed: 07/10/24 11:15>
MDM/Problems Addressed
Differential Diagnosis Includes:
Cat bite
MDM/Problems Addressed:
Well-appearing patient in no acute distress. Mild tenderness and swelling of third digit of right hand. Patient seen by urgent care center and antibiotic regimen. Bitten by an ill feral cat, unsure of rabies vax status.
We will give Rabies immunoglobulin and start vaccines series. Warning signs/reasons to return to Ed discussed with patient. F/U with PCP
Up to date with TDaP taken about 5 years ago.
<Yasmin Torres MD, Resident - Last Filed: 07/10/24 11:15>
*Critical Care Note
Total Time (30-74mins, 75-104mins- exclusive of procedures): Not Applicable
ED Attending Note
<Yasmin Torres MD, Resident - Last Filed: 07/10/24 11:15>
-
Portions of this chart may have been created with voice recognition software.� Occasional wrong word or��sound alike� substitutions may have occurred due to the inherent limitations of voice recognition software.
<Sawyer Frausto, DO - Last Filed: 07/10/24 11:20>
ED Attending Note
Patient seen and examined by attending physician: Yes
I performed the substantive portion of visit, reviewed & personally made and approve the management plan that is documented in note by myself or EMI.: Yes
I performed a history and physical exam of patient and discussed management with resident, I reviewed resident's note and agree with documented findings and plan of care.: Yes
ED Attending Note:
I evaluated the patient at bedside. She thinks that her last tetanus shot within the last 10 years. Given unclear rabies status with a cat, will start rabies immunoglobulin and vaccination series.
Discharge Plan
Departure
Patient Disposition: Home (Routine Discharge)
Date of Disposition: 07/10/24
Time of Disposition: 09:28
Patient with high blood pressure during this ER visit?: Yes
Discharge Problem:
Cat bite
Instructions: Animal Bites (DC), BLOOD PRESSURE, Rabies
Prescriptions:
New
RabAvert (PF) 2.5 unit Suspension For Reconstitution
1 ml IM . DIRECTED Qty: 3 0RF
Rx Instructions:
See Rabies Vaccine Post Exposure Prophylaxis Instruction Sheet for Dosing Instructions
No Action
trazodone 50 mg Tablet
50 mg PO HS PRN (Reason: sleep)
levothyroxine [Synthroid] 125 mcg Tablet
125 mcg PO SUFRSA@0800 Qty: 0 0RF
levothyroxine [Synthroid] 125 mcg Tablet
187.5 mcg PO MOTUWETH Qty: 0 0RF
sertraline 50 mg Tablet
50 mg PO DAILY Qty: 0 0RF
rosuvastatin [Crestor] 5 mg Tablet
5 mg PO Q72H Qty: 0 0RF
Referrals:
Swapna Dunbar MD [Family Provider] -
Stand Alone Forms: Rabies Vaccine Post Exp Dosing
Activity Restrictions/Additional Instructions:
Continue antibiotics. Call infusion center at [phone] to arrange for next rabies vaccination: Schedule these for 07/13, 07/17, and 07/24.
Interventions
Interventions:
*Risk Screen - Suicide Last Done: 07/10/24 08:31
*General Assessment Last Done: 07/10/24 08:31
*Neglect/Abuse Screening Last Done: 07/10/24 08:31
Discharge Date and Time
Print Language: CITIZEN OF [place]
[2024-07-10] MEDS: RABAVERT RABIES VACC W-DILUENT 2.5 UNIT IM (10:56)
[2024-07-10] MEDS: HyperRAB 1200 UNIT IM (10:58)
== END 2024-07-10 10:15 | disposition home or self-care (01) ==
LOC: EMR 08:24
PROVIDERS: EMERGENCY PHYSICIAN Emergency Medicine; FAMILY PHYSICIAN Family Medicine
DX: S61.252A Open bite of right middle finger without damage to nail, initial encounter (principal); Z20.3 Contact with and (suspected) exposure to rabies; Z23 Encounter for immunization; Z29.14 Encounter for prophylactic rabies immune globulin; W55.01XA Bitten by cat, initial encounter; Y93.K9 Activity, other involving animal care; Y92.89 Other specified places as the place of occurrence of the external cause; Y99.2 Volunteer activity; F32.A Depression, unspecified; E78.00 Pure hypercholesterolemia, unspecified; E03.9 Hypothyroidism, unspecified; F43.10 Post-traumatic stress disorder, unspecified; Z87.891 Personal history of nicotine dependence; Z88.0 Allergy status to penicillin
CPT/HCPCS: 99284; 96372; 90471; 90375; 90675

== ENCOUNTER 2024-07-17 08:59 | Outpatient (RCR) | payer MEDICARE, OTHER, SELFPAY ==
[2024-07-13 11:30] VITALS: BP 111/60
[2024-07-13] MEDS: RABAVERT RABIES VACC W-DILUENT 2.5 UNIT IM (11:50)
[2024-07-17 09:15] VITALS: BP 128/80
[2024-07-17] MEDS: RABAVERT RABIES VACC W-DILUENT 2.5 UNIT IM (09:19)
== END 2024-07-20 08:41 | disposition home or self-care (01) ==
LOC: OID 08:59
PROVIDERS: ATTENDING PHYSICIAN Emergency Medicine; FAMILY PHYSICIAN Family Medicine
DX: Z20.3 Contact with and (suspected) exposure to rabies (principal); Z23 Encounter for immunization
CPT/HCPCS: 90471; 90675

== ENCOUNTER 2024-07-24 12:37 | Outpatient (RCR) | payer MEDICARE, OTHER, SELFPAY ==
[2024-07-24 13:15] VITALS: BP 108/55
[2024-07-24] MEDS: RABAVERT RABIES VACC W-DILUENT 2.5 UNIT IM (13:28)
== END 2024-08-20 23:59 | disposition home or self-care (01) ==
LOC: OID 12:37
PROVIDERS: ATTENDING PHYSICIAN Emergency Medicine; FAMILY PHYSICIAN Family Medicine
DX: Z20.3 Contact with and (suspected) exposure to rabies (principal); Z23 Encounter for immunization
CPT/HCPCS: 90471; 90675

== ENCOUNTER 2024-08-27 15:22 | Emergency (ER) | payer MEDICARE, OTHER, SELFPAY ==
[2024-08-27 15:24] VITALS: BP 142/79
[2024-08-27 16:15] VITALS: BMI 20.1
--- NOTE | 2024-08-27 16:31 | ED.GENMED ---
History of Present Illness
General
Chief Complaint: Rabies
Source: patient
Exam Limitations: none
Time Seen by Provider: 08/27/24 15:43
Nursing documentation reviewed up to this point in time: agreed with
History of Present Illness
History of Present Illness:
64-year-old female past medical history at her place of employment. Recently treated for rabies prophylaxis concluding 2 weeks ago. presenting to the emergency department today with concerns of multiple cat scratches to the right hand with a feral
cat
Past History
Past History
ED Past Medical History: Hypercholesterolemia and Hypothyroidism
ED Past Surgical History: Orthopedic
Social History
Tobacco: Non-smoker
Alcohol: Occasional
Drug: None
Living: alone
Review of Systems
Review of Systems
Allergies reviewed?: Yes
All Other Systems: ROS reviewed and negative except as documented in HPI and ROS
Phy Exam
Physical Exam
Physical Exam:
GENERAL: Alert , in no apparent distress
EYE: pupils equal and reactive
NECK: Supple, no significant adenopathy.
ENT: o/p clr, mmm.
CARDIAC: Regular rate and rhythm .
LUNGS: Clear breath sounds bilaterally, no acute respiratory distress, no wheezes/rales/rhonchi
ABDOMEN: Soft, without focal tenderness, no r/g, no cvat
NEUROLOGICAL: Alert and oriented, no focal neuro deficits
SKIN: Multiple scratches to the right hand relatively superficial no bony tenderness good range of motion and strength warm and dry, skin intact.
MUSCULOSKELETAL: No edema, well perfused.
PSYCH: Normal and appropriate interaction.
Course
Orders/Labs/Results
Orders:
Orders
08/27/24 16:08
MetroNIDAZOLE [Flagyl] 500 mg PO NOW STA
08/27/24 16:19
Cefuroxime Axetil [Ceftin] 500 mg PO NOW STA
08/27/24 16:30
Rabies Vaccine (Pcec)/Pf [Rabavert Rabies Vacc W-Diluent] 2.5 unit IM .ONCE ONE
Vital Signs
Initial and Last Documented VS:
Initial Vital Signs
Temp Pulse Resp BP Pulse Ox
98.7 F 76 17 142/79 98
08/27/24 15:24 08/27/24 15:24 08/27/24 15:24 08/27/24 15:24 08/27/24 15:24
Last Documented Vital Signs
Temp Pulse Resp BP Pulse Ox
98.7 F 76 17 142/79 98
08/27/24 15:24 08/27/24 15:24 08/27/24 15:24 08/27/24 15:24 08/27/24 15:24
MDM/Problems Addressed
MDM/Problems Addressed:
64-year-old female presenting to the emergency department after sustaining multiple scratches to the right hand from a feral cat. Recent prophylaxis for rabies exposure including 2 weeks ago. Upon review there is no specific recommendations in the
circumstance it was recommended to give 2 vaccines at this point and otherwise prophylax for otherwise stable for outpatient management return precautions given.
*Critical Care Note
Total Time (30-74mins, 75-104mins- exclusive of procedures): Not Applicable
ED Attending Note
-
Portions of this chart may have been created with voice recognition software.� Occasional wrong word or��sound alike� substitutions may have occurred due to the inherent limitations of voice recognition software.
Discharge Plan
Departure
Patient Disposition: Home (Routine Discharge)
Date of Disposition: 08/27/24
Time of Disposition: 16:31
Patient with high blood pressure during this ER visit?: No
Condition: Good
Covid-19: Not Applicable
Discharge Problem:
Cat scratch
Instructions: Rabies
Prescriptions:
New
cefuroxime axetil 500 mg tablet
500 mg PO BID 3 Days Qty: 6 0RF
metronidazole 500 mg tablet
500 mg PO BID 3 Days Qty: 6 0RF
RabAvert (PF) 2.5 unit Suspension For Reconstitution
1 ml IM . DIRECTED Qty: 1 0RF
Rx Instructions:
See Rabies Vaccine Post Exposure Prophylaxis Instruction Sheet for Dosing Instructions
No Action
trazodone 50 mg Tablet
50 mg PO HS PRN (Reason: sleep)
levothyroxine [Synthroid] 125 mcg Tablet
125 mcg PO SUFRSA@0800 Qty: 0 0RF
levothyroxine [Synthroid] 125 mcg Tablet
187.5 mcg PO MOTUWETH Qty: 0 0RF
sertraline 50 mg Tablet
50 mg PO DAILY Qty: 0 0RF
rosuvastatin [Crestor] 5 mg Tablet
5 mg PO Q72H Qty: 0 0RF
RabAvert (PF) 2.5 unit Suspension For Reconstitution
1 ml IM . DIRECTED Qty: 3 0RF
Rx Instructions:
See Rabies Vaccine Post Exposure Prophylaxis Instruction Sheet for Dosing Instructions
ezetimibe [Zetia] 10 mg Tablet
10 mg PO HS
Referrals:
Swapna Dunbar MD [Family Provider] -
Stand Alone Forms: Rabies Vaccine Post Exp Dosing
Activity Restrictions/Additional Instructions:
You came to the emergency department today with concerns of cat scratch. Please take the antibiotics keep the area clean and take 2 doses total of rabies vaccination. Return to the emergency department for any worsening, new or concerning symptoms.
Interventions
Interventions:
*Risk Screen - Suicide Last Done: 08/27/24 15:24
*General Assessment Last Done: 08/27/24 15:24
*Neglect/Abuse Screening Last Done: 08/27/24 15:24
*ED COVID-19 Vaccine History Last Done: 08/27/24 15:49
*Nursing Disposition Last Done: 08/27/24 16:44
Discharge Date and Time
Discharge Date/Time: 08/27/24 16:45
Print Language: CITIZEN OF [place]
[2024-08-27] MEDS: CEFTIN 500 MG PO (16:34)
[2024-08-27] MEDS: FLAGYL 500 MG PO (16:34)
[2024-08-27] MEDS: RABAVERT RABIES VACC W-DILUENT 2.5 UNIT IM (16:34)
== END 2024-08-27 16:45 | disposition home or self-care (01) ==
LOC: EMR 15:22
PROVIDERS: EMERGENCY PHYSICIAN Emergency Medicine; FAMILY PHYSICIAN Family Medicine
DX: S60.511A Abrasion of right hand, initial encounter (principal); W55.03XA Scratched by cat, initial encounter; Z23 Encounter for immunization; E03.9 Hypothyroidism, unspecified; E78.00 Pure hypercholesterolemia, unspecified
CPT/HCPCS: 90471; 99283; 90675

== ENCOUNTER 2024-08-31 15:04 | Outpatient (RCR) | payer MEDICARE, OTHER, SELFPAY ==
[2024-08-31] MEDS: RABAVERT RABIES VACC W-DILUENT 2.5 UNIT IM (15:29)
[2024-08-31 15:35] VITALS: BP 117/82
== END 2024-09-19 23:59 | disposition home or self-care (01) ==
LOC: OID 15:04
PROVIDERS: ATTENDING PHYSICIAN Physician Assistant; PRIMARYCARE PHYSICIAN Family Medicine
DX: Z20.3 Contact with and (suspected) exposure to rabies (principal); Z23 Encounter for immunization
CPT/HCPCS: 90471; 90675

== ENCOUNTER → 2024-09-29 07:23 | Outpatient (REF) | payer MEDICARE, OTHER, SELFPAY | LOC: HWRAD 07:23 | PROVIDERS: ATTENDING PHYSICIAN Physician Assistant; FAMILY PHYSICIAN Family Medicine | DX: R82.998 Other abnormal findings in urine (principal); E80.6 Other disorders of bilirubin metabolism; R79.89 Other specified abnormal findings of blood chemistry | CPT/HCPCS: 76700 ==

== ENCOUNTER 2024-10-09 03:54 | Emergency (ER) | payer MEDICARE, OTHER, SELFPAY ==
[2024-10-09 03:54] VITALS: BMI 21.4
[2024-10-09 03:58] VITALS: BP 127/70
--- NOTE | 2024-10-09 04:20 | ED.SKININJ ---
HPI-Injury
General
Chief Complaint: Bite
Source: patient
Time Seen by Provider: 10/09/24 04:06
Nursing documentation reviewed up to this point in time: agreed with
History of Present Illness-Injury
Initial Injury comments:
Pleasant 64-year-old female presents to the emergency department after being bit by a feral cat while at work at the [employer]. Denies any other injury. Last tetanus shot was several weeks ago when something similar happened. Patient has
no head injury or loss of consciousness. Denies fever or chills. Moves all 4 extremities. Skin is warm dry and intact x 1.
Past History
Past History
ED Past Medical History: Hypercholesterolemia and Hypothyroidism
ED Past Surgical History: Orthopedic
Social History
Tobacco: Non-smoker
Alcohol: Occasional
Drug: None
Living: alone
Phy Exam
Physical Exam
Physical Exam:
Physical Exam
Vital signs and allergy list reviewed and agreed with.
GENERAL: Alert , in minimal apparent distress
EYE: pupils equal, EOMI, anicteric
NECK: Supple, no significant adenopathy. No masses. Trachea midline
ENT: Oropharynx is clear, mmm.
CARDIAC: Regular rate and rhythm . No M/R/G
LUNGS: Clear breath sounds bilaterally, no acute respiratory distress, no wheezes/rales/rhonchi
ABDOMEN: Soft, without focal tenderness, no r/g, no cvat. Normal BSx4q
NEUROLOGICAL: Alert and oriented, no focal neuro deficits
SKIN: Warm and dry, skin intact.
MUSCULOSKELETAL: No edema, well perfused. Moves all 4 extremities
PSYCH: Normal and appropriate interaction.
Course
Orders/Labs/Results
Orders:
Orders
10/09/24 04:11
MetroNIDAZOLE [Flagyl] 500 mg PO NOW STA
Rabies Vaccine (Pcec)/Pf [Rabavert Rabies Vacc W-Diluent] 2.5 unit IM .ONCE ONE
Hand, Left 2 View [CR Hand - Left 2 Views] Urgent
Comment:
Reason For Exam: cat bite
Hand, Right 2 Views [CR Hand - Right 2 Views] Urgent
Comment:
Reason For Exam: cat bite
10/09/24 04:58
Cefuroxime Axetil [Ceftin] 500 mg PO NOW STA
10/09/24 05:35
Tetanus/Diphth/Acelpertussis [Adacel] 0.5 ml IM .ONCE ONE
Vital Signs
Initial and Last Documented VS:
Initial Vital Signs
Temp Pulse Resp BP Pulse Ox
97.8 F 68 20 127/70 100
10/09/24 03:58 10/09/24 03:58 10/09/24 03:58 10/09/24 03:58 10/09/24 03:58
Last Documented Vital Signs
Temp Pulse Resp BP Pulse Ox
97.8 F 68 20 127/70 100
10/09/24 03:58 10/09/24 03:58 10/09/24 03:58 10/09/24 03:58 10/09/24 03:58
*Radiology
Radiology exam reviewed: all reviewed NAD by ED Provider
*Critical Care Note
Total Time (30-74mins, 75-104mins- exclusive of procedures): Not Applicable
Update Note
Update Note:
10/09/2024 0424 AM: Patient received full rabies vaccination in July, and a partial vaccination in August and now will receive the same partial vaccination.
Spoke with pharmacy regarding CDC guidelines and rabies vaccines. Is since she got 2 full doses in the last 1 to 2 months initially the recommendation that we do not t repeat the RabAvert vaccination
ED Attending Note
-
Portions of this chart may have been created with voice recognition software.� Occasional wrong word or��sound alike� substitutions may have occurred due to the inherent limitations of voice recognition software.
Discharge Plan
Departure
Patient Disposition: Home (Routine Discharge)
Date of Disposition: 10/09/24
Time of Disposition: 04:51
Patient with high blood pressure during this ER visit?: Yes
Condition: Good
Discharge Problem:
Cat bite
Instructions: Animal Bites (DC), Wound Care (DC), BLOOD PRESSURE, Rabies
Prescriptions:
New
RabAvert (PF) 2.5 unit suspension for reconstitution
1 ml IM ONCE Qty: 1 0RF
metronidazole 500 mg tablet
500 mg PO BID 3 Days Qty: 6 0RF
cefuroxime axetil 500 mg tablet
500 mg PO BID 3 Days Qty: 6 0RF
No Action
trazodone 50 mg Tablet
50 mg PO HS PRN (Reason: sleep)
levothyroxine [Synthroid] 125 mcg Tablet
125 mcg PO SUFRSA@0800 Qty: 0 0RF
levothyroxine [Synthroid] 125 mcg Tablet
187.5 mcg PO MOTUWETH Qty: 0 0RF
sertraline 50 mg Tablet
50 mg PO DAILY Qty: 0 0RF
rosuvastatin [Crestor] 5 mg Tablet
5 mg PO Q72H Qty: 0 0RF
ezetimibe [Zetia] 10 mg Tablet
10 mg PO HS
RabAvert (PF) 2.5 unit Suspension For Reconstitution
1 ml IM . DIRECTED Qty: 1 0RF
Rx Instructions:
See Rabies Vaccine Post Exposure Prophylaxis Instruction Sheet for Dosing Instructions
Stand Alone Forms: Rabies Vaccine Post Exp Dosing
Activity Restrictions/Additional Instructions:
Your prescriptions were sent electronically to the pharmacy that you specified.
It was a pleasure meeting you and taking part in your care. We hope for your continued healing and wellness.
Please read discharge instructions in their entirety. However, they are for general education and may not describe your exact diagnosis at discharge. Information on your ER visit and medical conditions were discussed with you along with appropriate
follow up information...
If indicated, please take your medications as instructed and indicated on discharge paperwork.
Please schedule a follow up appointment as directed. Call to schedule an appointment
Please return to the emergency department with ANY change in, persisting, or worsening of symptoms. If any of your symptoms do not improve, or persist, or become more severe within 6-12 hours, please return to the emergency department for further
care.
Please return to the emergency department if you develop a headache, neck pain/stiffness, fever greater than 100.4F, chest pain, shortness of breath, persistent nausea, vomiting, slurred speech, difficulty walking, numbness/tingling, weakness, signs
of infection or any other symptoms that are worrisome to you.
If you have any questions or concerns please do not hesitate to call the Hospital at or E-mail me directly at [email or web address]
Interventions
Interventions:
*Risk Screen - Suicide Last Done: 10/09/24 03:58
*General Assessment Last Done: 10/09/24 03:58
*Neglect/Abuse Screening Last Done: 10/09/24 03:58
ED- Fall Risk Assessment Last Done: 10/09/24 03:58
*ED COVID-19 Vaccine History Last Done: 10/09/24 03:58
*Nursing Disposition Last Done: 10/09/24 05:51
ED-Skin Assessment Last Done: 10/09/24 04:17
Discharge Date and Time
Discharge Date/Time: 10/09/24 05:52
Print Language: [place]
[2024-10-09] MEDS: CEFTIN 500 MG PO (05:24)
[2024-10-09] MEDS: FLAGYL 500 MG PO (05:24)
[2024-10-09] MEDS: ADACEL 0.5 ML IM (05:43)
== END 2024-10-09 05:52 | disposition home or self-care (01) ==
LOC: EMR 03:54
PROVIDERS: EMERGENCY PHYSICIAN Student in an Organized Health Care Education/Training Program; FAMILY PHYSICIAN Family Medicine
DX: S61.451A Open bite of right hand, initial encounter (principal); S61.250A Open bite of right index finger without damage to nail, initial encounter; S61.251A Open bite of left index finger without damage to nail, initial encounter; W55.01XA Bitten by cat, initial encounter; Y99.0 Civilian activity done for income or pay; R03.0 Elevated blood-pressure reading, without diagnosis of hypertension; Z23 Encounter for immunization
CPT/HCPCS: 99283; 90471; 73120; 90675; 90715

== ENCOUNTER → 2024-10-26 14:51 | Outpatient (REF) | payer MEDICARE, OTHER, SELFPAY | LOC: WDC 14:51 | PROVIDERS: ATTENDING PHYSICIAN Surgery | DX: R92.2 Inconclusive mammogram (principal) | CPT/HCPCS: 76641 ==

== ENCOUNTER → 2025-06-14 08:18 | Outpatient (REF) | payer MEDICARE, OTHER, SELFPAY | LOC: WDC 08:18 | PROVIDERS: ATTENDING PHYSICIAN Surgery; FAMILY PHYSICIAN Family Medicine | DX: Z12.31 Encounter for screening mammogram for malignant neoplasm of breast (principal); Z80.3 Family history of malignant neoplasm of breast; Z91.89 Other specified personal risk factors, not elsewhere classified | CPT/HCPCS: 77063; 77067 ==

== ENCOUNTER → 2025-07-21 09:48 | Outpatient (REF) | payer MEDICARE, OTHER, SELFPAY | LOC: EMG 09:48 | PROVIDERS: ATTENDING PHYSICIAN Physical Medicine & Rehabilitation; FAMILY PHYSICIAN Family Medicine | DX: M79.631 Pain in right forearm (principal); R20.0 Anesthesia of skin; M54.12 Radiculopathy, cervical region | CPT/HCPCS: 95886; 95909 ==

== ENCOUNTER → 2025-08-12 18:53 | Outpatient (REF) | payer MEDICARE, OTHER, SELFPAY | LOC: PAVMRI 18:53 | PROVIDERS: ATTENDING PHYSICIAN Orthopaedic Surgery; FAMILY PHYSICIAN Family Medicine | DX: M25.531 Pain in right wrist (principal) | CPT/HCPCS: 73221 ==

== ENCOUNTER → 2025-09-24 16:57 | Outpatient (REF) | payer MEDICARE, OTHER, SELFPAY | LOC: MRI 3T 16:57 | PROVIDERS: ATTENDING PHYSICIAN Nurse Practitioner Adult Health; FAMILY PHYSICIAN Family Medicine | DX: R92.2 Inconclusive mammogram (principal) | CPT/HCPCS: 77049; A9585 ==